=== PATIENT | male | born 1995 | race Caucasian/White ===

== ENCOUNTER 2017-12-18 08:58 | Emergency (ER) | payer SELFPAY ==
[~2017-12-18] VITALS: Ht 170.2 cm; Wt 81.8 kg
[2017-12-18 09:04] VITALS: Ht 170.2 cm; Wt 81.8 kg
[2017-12-18] MEDS ORDERED: KEFLEX500 MG PO (12:30)
[2017-12-18] MEDS ORDERED: HYDROCODON-ACE1 EAC7 PO (12:30)
[2017-12-18 12:59] VITALS: BP 120/71
== END 2017-12-18 12:50 | disposition home or self-care (01) ==
LOC: D.ER 08:58
DX: S61.202A Unspecified open wound of right middle finger without damage to nail, initial encounter (principal)